=== PATIENT | female | born 1955 | race African-American/Black ===

== ENCOUNTER 2017-04-03 20:53 | Emergency (ER) | payer OTHER ==
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
[2017-04-03 21:13] VITALS: BP 101/56; PULSE 99; TEMP 97.7; BMI 23.8
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
== END 2017-04-04 06:13 | disposition home or self-care (01) ==
LOC: JER 20:53
DX: F10.120 Alcohol abuse with intoxication, uncomplicated (principal); Y90.9 Presence of alcohol in blood, level not specified; H54.42 Blindness, left eye, normal vision right eye; Z59.0 Homelessness
CPT/HCPCS: 99281-25

== ENCOUNTER 2017-06-14 19:36 | Emergency (ER) | payer OTHER ==
[2017-06-14 19:56] VITALS: BP 133/71; PULSE 90; TEMP 98.9; BMI 23.8
[2017-06-14] MEDS ORDERED: ACETAMINOPHEN 325 MG TABLET (FP) PO ONE (20:03)
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
[2017-06-14] MEDS ORDERED: ACETAMINOPHEN 325 MG TABLET (FP) ONE (20:08)
== END 2017-06-14 22:31 | disposition home or self-care (01) ==
LOC: FER 19:36
DX: R51 Headache (principal); Y04.8XXA Assault by other bodily force, initial encounter; Y07.03 Male partner, perpetrator of maltreatment and neglect; Y93.89 Activity, other specified; Y92.410 Unspecified street and highway as the place of occurrence of the external cause; H54.40 Blindness, one eye, unspecified eye; G89.29 Other chronic pain
CPT/HCPCS: 99281-25

== ENCOUNTER 2022-05-13 00:07 | Inpatient (IN) | payer OTHER ==
[2022-05-13] MEDS ORDERED: SODIUM CHLORIDE 500 ML IV STA (00:16)
[2022-05-13 01:00] LABS: ALBUMIN 3.4 g/dl (3.4-5.0)
[2022-05-13] MEDS ORDERED: LACTATED RINGERS SOLUTION 1000 ML INFUS.BAG IV ONE (01:37)
[2022-05-13 01:46] LABS: INR 1.11 (0.83-1.09); PROTHROMBIN TIME (PATIENT) 12.8 SEC (9.7-13.0)
[2022-05-13 01:49] LABS: ACTIVATED PTT 26.4 SECONDS (25.2-36.5)
[2022-05-13 01:56] LABS: BASO % 0.4 % (0-2.0); HEMATOCRIT 22.4 % (32.4-45.2); HEMOGLOBIN 7.6 GM/dL (10.7-15.3); MCH 33.4 pg (25.7-33.7); MCHC 33.8 g/dl (32.0-36.0); MEAN CELL VOLUME 98.8 fl (80-96); MEAN PLT VOLUME 9.6 fl (7.5-11.1); MONO % 6.7 % (3.8-10.2); NEUT % 71.9 % (42.8-82.8); PLATELET COUNT 211 10^3/uL (134-434); RBC 2.26 M/mm3 (3.60-5.2); RDW 15.5 % (11.6-15.6); WHITE BLOOD COUNT 9.1 K/mm3 (4.0-10.0)
[2022-05-13 01:59] LABS: BLOOD UREA NITROGEN 25.1 mg/dL (7-18); CALCIUM 9.6 mg/dL (8.5-10.1)
[2022-05-13 02:02] LABS: BILIRUBIN,TOTAL 1.3 mg/dL (0.2-1); CREATININE 2.5 mg/dL (0.55-1.3); LACTIC ACID 4.3 mmol/L (0.4-2.0); TOT PROT 8.2 g/dl (6.4-8.2)
[2022-05-13 04:22] LABS: EPI CELLS >36 /uL (0-25.1); HYALINE CASTS 12 /uL (0-3.1); PH,URINE 6.5 (5.0-8.0); URINE APPEARANCE TURBID; URINE BACTERIA >9,000 /uL (0-1359); URINE BILIRUBIN 2+ (NEGATIVE); URINE COLOR DK YELLOW; URINE GLUCOSE (UA) NEGATIVE (NEGATIVE); URINE KETONE 1+ (NEGATIVE); URINE LEUK ESTERASE 3+ (NEGATIVE); URINE NITRITE NEGATIVE (NEGATIVE); URINE PROTEIN 3+ (NEGATIVE); URINE WBC 8676 /uL (0-25.8)
[2022-05-13] MEDS ORDERED: CEFTRIAXONE 1,000 MG in DEXTROSE 5%-WATER - 50 ML IVPB ONE (05:15)
[2022-05-13] MEDS ORDERED: CEFTRIAXONE 1 GM/50 ML BAG ONE (05:18)
[2022-05-13 07:31] LABS: URINE RBC 376.7 /uL (0-23.9); YEAST NEGATIVE (NEGATIVE)
[2022-05-13] MEDS ORDERED: SODIUM CHLORIDE 1,000 ML IV SCH (09:30)
[2022-05-13 11:34] LABS: URINE UREA NITROGEN 256 mg/dL (350-1000)
[2022-05-13 12:06] LABS: IRON SERUM 76 ug/dL (50-175); TOTAL IRON BINDING CAPACITY 182 ug/dL (250-450)
[2022-05-13] MEDS: DORZOLAMIDE 2% HCL OPHTHALMIC SOLUTION 10 ML BOTTLE OU SCH ×2 (13:30→21:46)
[2022-05-13] MEDS: BRIMONIDINE TARTRATE 0.1% OPHTHALMIC 5 ML BOTTLE OD SCH ×2 (15:50→21:46)
[2022-05-13] MEDS: TIMOLOL 0.5% OPHTHALMIC SOL 5 ML BOTTLE OD SCH ×2 (15:50→21:47)
[2022-05-13] MEDS: SODIUM CHLORIDE 1,000 ML IV SCH (17:12)
[2022-05-14] MEDS: SODIUM CHLORIDE 1,000 ML IV SCH (01:52)
[2022-05-14] MEDS: BRIMONIDINE TARTRATE 0.1% OPHTHALMIC 5 ML BOTTLE OD SCH ×3 (05:19→21:49)
[2022-05-14] MEDS: TIMOLOL 0.5% OPHTHALMIC SOL 5 ML BOTTLE OD SCH ×3 (05:20→21:49)
[2022-05-14] MEDS ORDERED: SODIUM CHLORIDE 1,000 ML IV SCH (07:45)
[2022-05-14] MEDS: DORZOLAMIDE 2% HCL OPHTHALMIC SOLUTION 10 ML BOTTLE OU SCH ×2 (09:25→21:49)
[2022-05-14] MEDS ORDERED: CEFTRIAXONE 2 GM in DEXTROSE 5%-WATER 100 ML IVPB SCH (10:00)
[2022-05-14 10:54] LABS: BASO % 0.4 % (0-2.0); EOS % 0.4 % (0-4.5); HEMATOCRIT 17.6 % (32.4-45.2); LYMPH % 30.7 % (8-40); MCH 33.2 pg (25.7-33.7); MEAN CELL VOLUME 100.5 fl (80-96); MEAN PLT VOLUME 9.2 fl (7.5-11.1); MONO % 6.3 % (3.8-10.2); NEUT % 62.2 % (42.8-82.8); PLATELET COUNT 166 10^3/uL (134-434); RBC 1.75 M/mm3 (3.60-5.2); WHITE BLOOD COUNT 4.2 K/mm3 (4.0-10.0)
[2022-05-14 10:59] LABS: HEMOGLOBIN 5.8 GM/dL (10.7-15.3)
[2022-05-14 11:26] LABS: SODIUM 139 mmol/L (136-145)
[2022-05-14 11:39] LABS: BLOOD UREA NITROGEN 22.5 mg/dL (7-18); GLUCOSE,RANDOM 81 mg/dL (74-106)
[2022-05-14 11:40] LABS: CO2 21 mmol/L (21-32); MAGNESIUM 1.6 mg/dL (1.8-2.4)
[2022-05-14 11:42] LABS: CREATININE 1.3 mg/dL (0.55-1.3); PHOSPHOROUS 2.8 mg/dL (2.5-4.9); SGPT/ALT 24 U/L (13-61)
[2022-05-14 11:43] LABS: SGOT/AST 55 U/L (15-37)
[2022-05-14 11:44] LABS: BILIRUBIN,TOTAL 0.6 mg/dL (0.2-1)
[2022-05-14 11:45] LABS: ALK PHOS 43 U/L (45-117)
[2022-05-14] MEDS ORDERED: POTASSIUM CHLORIDE TABS 20 MEQ TABLET.ER (FP) PO ONE (11:46)
[2022-05-14 11:50] LABS: ALBUMIN 2.4 g/dl (3.4-5.0); ANION GAP 13 MMOL/L (8-16); CALCIUM 8.1 mg/dL (8.5-10.1); CHLORIDE 104 mmol/L (98-107); TOT PROT 6.1 g/dl (6.4-8.2); URIC ACID 13.1 mg/dL (2.6-7.2)
[2022-05-14] MEDS ORDERED: MAGNESIUM OXIDE 400 MG TABLET (FP) PO ONE (12:30)
[2022-05-14] MEDS ORDERED: SODIUM CHLORIDE 1,000 ML with POTASSIUM CHLORIDE 10 MEQ IV SCH (12:30)
[2022-05-14] MEDS: SODIUM CHLORIDE 1,000 ML with POTASSIUM CHLORIDE 10 MEQ IV SCH ×2 (15:03→23:20)
[2022-05-14] MEDS ORDERED: LORazepam 2 MG TABLET PO PRN (15:16)
[2022-05-14] MEDS ORDERED: LORazepam 1 MG TABLET PO PRN (15:28)
[2022-05-14] MEDS ORDERED: LACTATED RINGERS SOLUTION 1,000 ML/1,000 ML INFUS.BAG IV SCH (15:30)
[2022-05-14] MEDS: THIAMINE HCL 200 MG/2 ML VIAL IVPB SCH ×2 (15:37→23:30)
[2022-05-14] MEDS: FOLIC ACID 1 MG TABLET (FP) PO SCH (15:37)
[2022-05-14 18:13] LABS: RETICULOCYTES 2.15 % (0.5-1.5)
[2022-05-15] MEDS: SODIUM CHLORIDE 1,000 ML with POTASSIUM CHLORIDE 10 MEQ IV SCH ×2 (01:30→17:23)
[2022-05-15 02:59] LABS: BASO % 0.7 % (0-2.0); EOS % 0.3 % (0-4.5); HEMATOCRIT 22.9 % (32.4-45.2); HEMOGLOBIN 8.1 GM/dL (10.7-15.3); LYMPH % 35.3 % (8-40); MCH 33.3 pg (25.7-33.7); MCHC 35.3 g/dl (32.0-36.0); MEAN CELL VOLUME 94.3 fl (80-96); MEAN PLT VOLUME 8.9 fl (7.5-11.1); MONO % 8.4 % (3.8-10.2); NEUT % 55.3 % (42.8-82.8); PLATELET COUNT 156 10^3/uL (134-434); RBC 2.42 M/mm3 (3.60-5.2); WHITE BLOOD COUNT 4.6 K/mm3 (4.0-10.0)
[2022-05-15] MEDS: TIMOLOL 0.5% OPHTHALMIC SOL 5 ML BOTTLE OD SCH ×3 (05:54→22:00)
[2022-05-15] MEDS: THIAMINE HCL 200 MG/2 ML VIAL IVPB SCH ×2 (05:54→16:46)
[2022-05-15] MEDS: BRIMONIDINE TARTRATE 0.1% OPHTHALMIC 5 ML BOTTLE OD SCH ×3 (05:54→22:00)
[2022-05-15] MEDS: FOLIC ACID 1 MG TABLET (FP) PO SCH (09:58)
[2022-05-15] MEDS ORDERED: CEFTRIAXONE 1 GM in DEXTROSE 5%-WATER - 50 ML IVPB SCH (10:00)
[2022-05-15] MEDS: DORZOLAMIDE 2% HCL OPHTHALMIC SOLUTION 10 ML BOTTLE OU SCH ×2 (10:47→22:00)
[2022-05-15 11:00] LABS: BASO % 0.9 % (0-2.0); EOS % 0.5 % (0-4.5); HEMOGLOBIN 9.5 GM/dL (10.7-15.3); LYMPH % 35.1 % (8-40); MCH 32.9 pg (25.7-33.7); MCHC 33.9 g/dl (32.0-36.0); MEAN PLT VOLUME 9.5 fl (7.5-11.1); NEUT % 57.5 % (42.8-82.8); PLATELET COUNT 214 10^3/uL (134-434); RBC 2.88 M/mm3 (3.60-5.2); WHITE BLOOD COUNT 5.5 K/mm3 (4.0-10.0)
[2022-05-15 11:24] LABS: CALCIUM 8.2 mg/dL (8.5-10.1)
[2022-05-15 11:25] LABS: ALBUMIN 2.6 g/dl (3.4-5.0); BLOOD UREA NITROGEN 14.6 mg/dL (7-18); MAGNESIUM 1.3 mg/dL (1.8-2.4)
[2022-05-15 11:28] LABS: CREATININE 1.1 mg/dL (0.55-1.3); PHOSPHOROUS 1.7 mg/dL (2.5-4.9)
[2022-05-15 11:30] LABS: TOT PROT 6.7 g/dl (6.4-8.2)
[2022-05-15 12:07] VITALS: BMI 22.1
[2022-05-15] MEDS: NAPH,MB-DB/K PH,MBDB POWDER PACKET PO SCH ×2 (14:49→22:00)
[2022-05-15] MEDS: MAGNESIUM SULF 50% (8.12 MEQ/2 ML-1 GM VIAL) IVPB SCH (14:50)
[2022-05-15] MEDS: HEPARIN NA (PORCINE) 5,000 UNITS/ML 1ML VIAL SQ SCH (22:00)
[2022-05-16] MEDS: THIAMINE HCL 200 MG/2 ML VIAL IVPB SCH ×3 (01:18→21:50)
[2022-05-16] MEDS: MAGNESIUM SULF 50% (8.12 MEQ/2 ML-1 GM VIAL) IVPB SCH (01:18)
[2022-05-16] MEDS: SODIUM CHLORIDE 1,000 ML with POTASSIUM CHLORIDE 10 MEQ IV SCH ×2 (03:30→18:03)
[2022-05-16] MEDS: NAPH,MB-DB/K PH,MBDB POWDER PACKET PO SCH ×4 (05:08→21:46)
[2022-05-16] MEDS: TIMOLOL 0.5% OPHTHALMIC SOL 5 ML BOTTLE OD SCH ×4 (05:08→21:42)
[2022-05-16] MEDS: BRIMONIDINE TARTRATE 0.1% OPHTHALMIC 5 ML BOTTLE OD SCH ×4 (05:08→21:43)
[2022-05-16] MEDS: THIAMINE HCL 200 MG/2 ML VIAL IM SCH ×2 (09:59→13:58)
[2022-05-16] MEDS: HEPARIN NA (PORCINE) 5,000 UNITS/ML 1ML VIAL SQ SCH ×2 (09:59→21:50)
[2022-05-16] MEDS: FOLIC ACID 1 MG TABLET (FP) PO SCH (10:00)
[2022-05-16] MEDS: CEFUROXIME AXETIL 500 MG TABLET PO SCH ×2 (10:00→21:46)
[2022-05-16] MEDS: DORZOLAMIDE 2% HCL OPHTHALMIC SOLUTION 10 ML BOTTLE OU SCH ×2 (10:01→21:43)
[2022-05-16 10:15] LABS: BASO % 0.9 % (0-2.0); EOS % 0.5 % (0-4.5); HEMATOCRIT 29.5 % (32.4-45.2); HEMOGLOBIN 9.8 GM/dL (10.7-15.3); LYMPH % 33.9 % (8-40); MCH 32.2 pg (25.7-33.7); MCHC 33.3 g/dl (32.0-36.0); MEAN CELL VOLUME 96.7 fl (80-96); MEAN PLT VOLUME 9.7 fl (7.5-11.1); MONO % 7.7 % (3.8-10.2); PLATELET COUNT 211 10^3/uL (134-434); RBC 3.05 M/mm3 (3.60-5.2); RDW 16.6 % (11.6-15.6); WHITE BLOOD COUNT 4.8 K/mm3 (4.0-10.0)
[2022-05-16 10:44] LABS: ALBUMIN 2.8 g/dl (3.4-5.0); BLOOD UREA NITROGEN 9.2 mg/dL (7-18); CALCIUM 8.3 mg/dL (8.5-10.1); MAGNESIUM 1.6 mg/dL (1.8-2.4)
[2022-05-16 10:46] LABS: PHOSPHOROUS 2.4 mg/dL (2.5-4.9)
[2022-05-16 10:47] LABS: CREATININE 0.7 mg/dL (0.55-1.3); URIC ACID 8.6 mg/dL (2.6-7.2)
[2022-05-16 10:48] LABS: BILIRUBIN,TOTAL 0.8 mg/dL (0.2-1); TOT PROT 7.2 g/dl (6.4-8.2)
[2022-05-16] MEDS ORDERED: MAGNESIUM SULF 50% (8.12 MEQ/2 ML-1 GM VIAL) IVPB ONE ×2 (12:15→17:45)
[2022-05-17] MEDS: THIAMINE HCL 200 MG/2 ML VIAL IVPB SCH ×2 (05:02→14:09)
[2022-05-17] MEDS: BRIMONIDINE TARTRATE 0.1% OPHTHALMIC 5 ML BOTTLE OD SCH ×3 (05:03→22:00)
[2022-05-17] MEDS: TIMOLOL 0.5% OPHTHALMIC SOL 5 ML BOTTLE OD SCH ×3 (05:03→22:00)
[2022-05-17] MEDS: NAPH,MB-DB/K PH,MBDB POWDER PACKET PO SCH ×2 (05:03→14:08)
[2022-05-17 11:02] LABS: BASO % 0.7 % (0-2.0); EOS % 0.4 % (0-4.5); LYMPH % 35.5 % (8-40); MCH 32.8 pg (25.7-33.7); MCHC 33.5 g/dl (32.0-36.0); MEAN CELL VOLUME 97.8 fl (80-96); MEAN PLT VOLUME 9.6 fl (7.5-11.1); MONO % 9.7 % (3.8-10.2); NEUT % 53.7 % (42.8-82.8); PLATELET COUNT 195 10^3/uL (134-434); RBC 2.76 M/mm3 (3.60-5.2); RDW 16.7 % (11.6-15.6); WHITE BLOOD COUNT 4.8 K/mm3 (4.0-10.0)
[2022-05-17] MEDS: HEPARIN NA (PORCINE) 5,000 UNITS/ML 1ML VIAL SQ SCH ×2 (11:02→22:19)
[2022-05-17] MEDS: CEFUROXIME AXETIL 500 MG TABLET PO SCH ×2 (11:02→22:19)
[2022-05-17] MEDS: FOLIC ACID 1 MG TABLET (FP) PO SCH (11:02)
[2022-05-17] MEDS: DORZOLAMIDE 2% HCL OPHTHALMIC SOLUTION 10 ML BOTTLE OU SCH (11:03)
[2022-05-17 12:04] LABS: ALBUMIN 2.6 g/dl (3.4-5.0); BLOOD UREA NITROGEN 6.1 mg/dL (7-18); CALCIUM 8.3 mg/dL (8.5-10.1)
[2022-05-17 12:05] LABS: MAGNESIUM 1.8 mg/dL (1.8-2.4)
[2022-05-17 12:06] LABS: CREATININE 0.6 mg/dL (0.55-1.3); PHOSPHOROUS 3.4 mg/dL (2.5-4.9)
[2022-05-17 12:09] LABS: BILIRUBIN,TOTAL 0.7 mg/dL (0.2-1); TOT PROT 6.4 g/dl (6.4-8.2)
[2022-05-17] MEDS: D5-1/2NS+10 MEQ KCL - 10 MEQ/1,000 ML INFUS.BAG IV SCH (16:55)
[2022-05-17] MEDS ORDERED: THIAMINE HCL 200 MG/2 ML VIAL IVPB ONE ×2 (16:55→22:00)
[2022-05-17] MEDS ORDERED: THIAMINE HCL 200 MG/2 ML VIAL IVPB SCH (22:00)
[2022-05-18] MEDS: DORZOLAMIDE 2% HCL OPHTHALMIC SOLUTION 10 ML BOTTLE OU SCH ×3 (04:15→22:45)
[2022-05-18] MEDS: BRIMONIDINE TARTRATE 0.1% OPHTHALMIC 5 ML BOTTLE OD SCH ×3 (06:55→22:45)
[2022-05-18] MEDS: TIMOLOL 0.5% OPHTHALMIC SOL 5 ML BOTTLE OD SCH ×3 (06:57→22:45)
[2022-05-18 09:55] LABS: BASO % 1.1 % (0-2.0); EOS % 0.4 % (0-4.5); HEMATOCRIT 24.3 % (32.4-45.2); HEMOGLOBIN 8.2 GM/dL (10.7-15.3); LYMPH % 38.9 % (8-40); MCH 32.8 pg (25.7-33.7); MCHC 33.6 g/dl (32.0-36.0); MEAN CELL VOLUME 97.5 fl (80-96); MEAN PLT VOLUME 9.8 fl (7.5-11.1); NEUT % 49.6 % (42.8-82.8); PLATELET COUNT 187 10^3/uL (134-434); RBC 2.49 M/mm3 (3.60-5.2); RDW 17.1 % (11.6-15.6); WHITE BLOOD COUNT 4.2 K/mm3 (4.0-10.0)
[2022-05-18 10:27] LABS: ALBUMIN 2.3 g/dl (3.4-5.0); BLOOD UREA NITROGEN 5.4 mg/dL (7-18); CREATININE 0.5 mg/dL (0.55-1.3)
[2022-05-18 10:29] LABS: BILIRUBIN,TOTAL 0.6 mg/dL (0.2-1)
[2022-05-18 10:31] LABS: PHOSPHOROUS 2.7 mg/dL (2.5-4.9)
[2022-05-18 10:32] LABS: MAGNESIUM 1.5 mg/dL (1.8-2.4)
[2022-05-18] MEDS: THIAMINE HCL 200 MG/2 ML VIAL IVPB SCH (10:42)
[2022-05-18] MEDS: HEPARIN NA (PORCINE) 5,000 UNITS/ML 1ML VIAL SQ SCH ×2 (10:42→22:45)
[2022-05-18] MEDS: FOLIC ACID 1 MG TABLET (FP) PO SCH (10:43)
[2022-05-18] MEDS: CEFUROXIME AXETIL 500 MG TABLET PO SCH ×2 (10:43→22:45)
[2022-05-18] MEDS: D5-1/2NS+10 MEQ KCL - 10 MEQ/1,000 ML INFUS.BAG IV SCH (16:32)
[2022-05-18] MEDS ORDERED: MAGNESIUM 2GM/50ML STERILE WATER IVPB IVPB ONE (17:06)
[2022-05-19] MEDS: TIMOLOL 0.5% OPHTHALMIC SOL 5 ML BOTTLE OD SCH ×3 (05:26→22:36)
[2022-05-19] MEDS: BRIMONIDINE TARTRATE 0.1% OPHTHALMIC 5 ML BOTTLE OD SCH ×3 (05:26→22:36)
[2022-05-19 06:10] VITALS: RESP 18
[2022-05-19 09:30] LABS: ALBUMIN 2.3 g/dl (3.4-5.0); BLOOD UREA NITROGEN 5.8 mg/dL (7-18); MAGNESIUM 1.7 mg/dL (1.8-2.4)
[2022-05-19 09:33] LABS: CREATININE 0.5 mg/dL (0.55-1.3); PHOSPHOROUS 2.8 mg/dL (2.5-4.9)
[2022-05-19 09:34] LABS: BILIRUBIN,TOTAL 0.5 mg/dL (0.2-1)
[2022-05-19 09:35] LABS: TOT PROT 5.9 g/dl (6.4-8.2)
[2022-05-19 09:43] LABS: BASO % 0.5 % (0-2.0); EOS % 0.5 % (0-4.5); HEMATOCRIT 23.2 % (32.4-45.2); LYMPH % 35.8 % (8-40); MCH 33.7 pg (25.7-33.7); MCHC 34.5 g/dl (32.0-36.0); MEAN CELL VOLUME 97.7 fl (80-96); MEAN PLT VOLUME 9.3 fl (7.5-11.1); MONO % 10.8 % (3.8-10.2); NEUT % 52.4 % (42.8-82.8); PLATELET COUNT 175 10^3/uL (134-434); RBC 2.38 M/mm3 (3.60-5.2); RDW 16.4 % (11.6-15.6); WHITE BLOOD COUNT 4.1 K/mm3 (4.0-10.0)
[2022-05-19] MEDS: THIAMINE HCL 200 MG/2 ML VIAL IVPB SCH (09:48)
[2022-05-19] MEDS: HEPARIN NA (PORCINE) 5,000 UNITS/ML 1ML VIAL SQ SCH ×2 (09:50→21:56)
[2022-05-19] MEDS: CEFUROXIME AXETIL 500 MG TABLET PO SCH ×2 (09:50→21:56)
[2022-05-19] MEDS: FOLIC ACID 1 MG TABLET (FP) PO SCH (09:50)
[2022-05-19] MEDS: DORZOLAMIDE 2% HCL OPHTHALMIC SOLUTION 10 ML BOTTLE OU SCH ×2 (09:51→22:36)
[2022-05-19] MEDS: D5-1/2NS+10 MEQ KCL - 10 MEQ/1,000 ML INFUS.BAG IV SCH (12:11)
[2022-05-19] MEDS ORDERED: D5-1/2NS+10 MEQ KCL - 10 MEQ/1,000 ML INFUS.BAG IV SCH (12:41)
[2022-05-19] MEDS ORDERED: MAGNESIUM SULF 50% (8.12 MEQ/2 ML-1 GM VIAL) IVPB ONE (12:45)
[2022-05-20] MEDS: TIMOLOL 0.5% OPHTHALMIC SOL 5 ML BOTTLE OD SCH ×3 (05:04→21:26)
[2022-05-20] MEDS: BRIMONIDINE TARTRATE 0.1% OPHTHALMIC 5 ML BOTTLE OD SCH ×3 (05:04→21:25)
[2022-05-20] MEDS: CEFUROXIME AXETIL 500 MG TABLET PO SCH (10:20)
[2022-05-20] MEDS: FOLIC ACID 1 MG TABLET (FP) PO SCH (10:20)
[2022-05-20] MEDS: HEPARIN NA (PORCINE) 5,000 UNITS/ML 1ML VIAL SQ SCH ×2 (10:21→21:24)
[2022-05-20] MEDS: THIAMINE HCL 200 MG/2 ML VIAL IVPB SCH (10:21)
[2022-05-20] MEDS: DORZOLAMIDE 2% HCL OPHTHALMIC SOLUTION 10 ML BOTTLE OU SCH ×2 (10:22→21:25)
[2022-05-20 10:45] LABS: BASO % 1.2 % (0-2.0); EOS % 0.4 % (0-4.5); HEMATOCRIT 24.9 % (32.4-45.2); HEMOGLOBIN 8.2 GM/dL (10.7-15.3); LYMPH % 37.2 % (8-40); MCH 32.9 pg (25.7-33.7); MCHC 33.1 g/dl (32.0-36.0); MEAN CELL VOLUME 99.5 fl (80-96); MEAN PLT VOLUME 9.9 fl (7.5-11.1); MONO % 10.1 % (3.8-10.2); NEUT % 51.1 % (42.8-82.8); PLATELET COUNT 186 10^3/uL (134-434); RDW 16.9 % (11.6-15.6); WHITE BLOOD COUNT 4.7 K/mm3 (4.0-10.0)
[2022-05-20 11:07] LABS: ALBUMIN 2.3 g/dl (3.4-5.0); CALCIUM 8.3 mg/dL (8.5-10.1)
[2022-05-20 11:08] LABS: MAGNESIUM 1.6 mg/dL (1.8-2.4)
[2022-05-20 11:10] LABS: CREATININE 0.6 mg/dL (0.55-1.3)
[2022-05-20 11:11] LABS: PHOSPHOROUS 2.8 mg/dL (2.5-4.9)
[2022-05-20 11:12] LABS: BILIRUBIN,TOTAL 0.5 mg/dL (0.2-1); TOT PROT 6.1 g/dl (6.4-8.2)
[2022-05-20] MEDS ORDERED: LACTULOSE 20 GM/30 ML UDC (FOR ORAL USE ONLY) PO PRN (13:21)
[2022-05-20] MEDS ORDERED: MAGNESIUM 2GM/50ML STERILE WATER IVPB IVPB ONE (17:43)
[2022-05-21] MEDS: TIMOLOL 0.5% OPHTHALMIC SOL 5 ML BOTTLE OD SCH ×2 (05:10→14:13)
[2022-05-21] MEDS: BRIMONIDINE TARTRATE 0.1% OPHTHALMIC 5 ML BOTTLE OD SCH ×2 (05:10→14:13)
[2022-05-21] MEDS: THIAMINE HCL 200 MG/2 ML VIAL IVPB SCH (09:15)
[2022-05-21] MEDS: DORZOLAMIDE 2% HCL OPHTHALMIC SOLUTION 10 ML BOTTLE OU SCH (09:16)
[2022-05-21] MEDS: HEPARIN NA (PORCINE) 5,000 UNITS/ML 1ML VIAL SQ SCH (09:16)
[2022-05-21] MEDS: FOLIC ACID 1 MG TABLET (FP) PO SCH (11:41)
[2022-05-21 11:58] LABS: EOS % 0.4 % (0-4.5); HEMATOCRIT 22.9 % (32.4-45.2); HEMOGLOBIN 7.9 GM/dL (10.7-15.3); LYMPH % 35.6 % (8-40); MCH 33.8 pg (25.7-33.7); MCHC 34.3 g/dl (32.0-36.0); MEAN CELL VOLUME 98.6 fl (80-96); PLATELET COUNT 185 10^3/uL (134-434); RBC 2.32 M/mm3 (3.60-5.2); RDW 16.4 % (11.6-15.6); WHITE BLOOD COUNT 5.4 K/mm3 (4.0-10.0)
[2022-05-21 12:19] LABS: CALCIUM 8.4 mg/dL (8.5-10.1); MAGNESIUM 1.6 mg/dL (1.8-2.4)
[2022-05-21 12:20] LABS: ALBUMIN 2.3 g/dl (3.4-5.0)
[2022-05-21 12:22] LABS: CREATININE 0.6 mg/dL (0.55-1.3); PHOSPHOROUS 3.5 mg/dL (2.5-4.9)
[2022-05-21 12:23] LABS: BILIRUBIN,TOTAL 0.6 mg/dL (0.2-1); TOT PROT 6.2 g/dl (6.4-8.2)
[2022-05-21 15:50] VITALS: BP 113/66; PULSE 94; TEMP 97.9
== END 2022-05-21 20:35 | DRG 682 ==
LOC: JER 00:07 → JERBED 02:42 → J5S 18:37
PROVIDERS: ADMIT Internal Medicine; ATTEND Internal Medicine
DX: N17.9 Acute kidney failure, unspecified (principal); E43 Unspecified severe protein-calorie malnutrition; E51.2 Wernicke's encephalopathy; N39.0 Urinary tract infection, site not specified; E87.1 Hypo-osmolality and hyponatremia; E87.20 Acidosis, unspecified; F03.90 Unspecified dementia, unspecified severity, without behavioral disturbance, psychotic disturbance, mood disturbance, and anxiety; E86.0 Dehydration; R31.9 Hematuria, unspecified; E87.6 Hypokalemia; E83.42 Hypomagnesemia; D53.9 Nutritional anemia, unspecified; E88.09 Other disorders of plasma-protein metabolism, not elsewhere classified; E79.0 Hyperuricemia without signs of inflammatory arthritis and tophaceous disease; E16.2 Hypoglycemia, unspecified; Z68.22 Body mass index [BMI] 22.0-22.9, adult; F10.10 Alcohol abuse, uncomplicated
CPT/HCPCS: 0241U-QW; 36415; 36430; 70450-TC; 71045-TC-FY; 76775-TC; 76856-TC; 80053; 80307; 81003; 82140; 82272; 82550; 82553; 82570; 82607; 82746; 82962; 83540; 83550; 83605; 83735; 84100; 84156; 84300; 84425; 84484; 84540; 84550; 85025; 85045; 85610; 85730; 86850; 86900; 86901; 86922; 87040; 87086; 87186; 93005; 93010; 97116-GP; 97161-GP; 99285-25; C9803-CS; J1644; P9058; U0003; U0005